=== PATIENT | male | born 1980 | race Two or more races ===

== ENCOUNTER 2017-07-14 01:59 | Emergency (ER) | payer MEDICAID ==
[~2017-07-14] VITALS: Ht 172.7 cm; Wt 79.4 kg
[2017-07-14 02:10] VITALS: BP 164/102
[2017-07-14] MEDS ORDERED: Morphine Sulfate 4mg/ml Inj IVP ONE (02:45)
[2017-07-14] MEDS ORDERED: Ketorolac 30mg Inj IV ONE (02:45)
[2017-07-14 03:45] LABS: APPEARANCE,URINE CLEAR; KETONES,URINE NEGATIVE (NEGATIVE); LEUKOCYTE ESTERASE ,URINE 1+ (NEGATIVE); NITRITE,URINE NEGATIVE (NEGATIVE); PH,URINE 5 (4.5-8.0); PROTEIN,URINE 1+ (NEGATIVE); UROBILINOGEN,URINE 4 MG/DL (0.0-1.0)
[2017-07-14 03:48] LABS: BASOPHILS % (AUTO) 1.3 % (0.0-2.0); EOSINOPHILS % (AUTO) 1.7 % (0.0-3.0); LYMPHOCYTES % (AUTO) 38.1 % (20.0-45.0); MEAN CORPUSCULAR HEMOGLOBIN 31.3 PG (27.0-31.0); MEAN CORPUSCULAR HGB CONC 35.6 G/DL (32.0-36.0); MEAN CORPUSCULAR VOLUME 88 FL (80-99); MEAN PLATELET VOLUME 6.9 FL (6.5-10.1); MONOCYTES % (AUTO) 10.6 % (1.0-10.0); NEUTROPHILS % (AUTO) 48.3 % (45.0-75.0); PLATELET COUNT 271 K/UL (150-450); RED BLOOD COUNT 4.29 M/UL (4.70-6.10); WHITE BLOOD COUNT 7.8 K/UL (4.8-10.8)
[2017-07-14 04:01] LABS: ALANINE AMINOTRANSFERASE 34 U/L (3-41); ALBUMIN/GLOBULIN RATIO 1.3 (1.0-2.7); ANION GAP 14 (5-15); ASPARTATE AMINO TRANSFERASE 21 U/L (5-40); CALCIUM 9.7 mg/dL (8.6-10.2); CARBON DIOXIDE 28 mEQ/L (20-30); CHLORIDE 100 mEQ/L (98-107); GLOMERULAR FILTRATION RATE > 60 mL/min (>60); HEMOLYSIS 17; LIPASE 18 U/L (< 60); POTASSIUM 3.2 mEQ/L (3.4-4.9); SODIUM 142 mEQ/L (135-145); TOTAL PROTEIN 7.6 g/dL (6.6-8.7)
[2017-07-14 04:05] LABS: CALCIUM OXALATE CRYSTALS,UR FEW /LPF; ICTOTEST NEGATIVE; WBC,URINE 0-2 /HPF (0 - 0)
[2017-07-14 04:10] VITALS: BP 128/89
[2017-07-14] MEDS ORDERED: TAMSULOSIN HCL0.4 MG ORAL (05:07)
[2017-07-14] MEDS ORDERED: IBUPROFEN600 MG ORAL (05:07)
--- NOTE | 2017-07-14 05:47 | Emergency Room Report ---
History of Present Illness General Chief Complaint: Lower Back Pain or Injury Source: Patient Present Illness HPI [id number] with acute onset right lower back pain Intermittent spasm pain since few hours Difficulty urinatign d/t pain Previous right sided renal stone Denies nausea/vomiting, abd pain, fever/chills Denies other medical problems Allergies: Coded Allergies: No Known Allergies (Unverified , 07/14/17) Patient History Past Medical History: other - Renal stone Past Surgical History: none Pertinent Family History: none Social History: Denies: smoking, alcohol use, drug use Immunizations: UTD Reviewed Nursing Documentation: PMH: Agreed, PSxH: Agreed Review of Systems All Other Systems: negative except mentioned in HPI Physical Exam Vital Signs Date Time Temp Pulse Resp B/P (MAP) Pulse Ox O2 Delivery O2 Flow Rate FiO2 07/14/17 02:04 97.9 105 22 164/102 98 Room Air Sp02 EP Interpretation: reviewed, normal General Appearance: normal inspection, well appearing, no apparent distress, alert, GCS 15, non-toxic Head: normocephalic, atraumatic Eyes: bilateral eye PERRL, bilateral eye EOMI ENT: normal ENT inspection, hearing grossly normal, normal voice Neck: normal inspection, full range of motion, supple, no bony tend Respiratory: normal inspection, lungs clear, normal breath sounds, no respiratory distress, no retraction, no wheezing Cardiovascular #1: regular rate, rhythm, no edema Gastrointestinal: normal inspection, normal bowel sounds, non tender, soft, no guarding, no hernia Genitourinary: CVA tenderness (R) Musculoskeletal: normal inspection, back normal, normal range of motion, Mrii' s Sign negative Neurologic: normal inspection, alert, oriented x3, responsive, client support associate III-XII nml as tested, motor strength/tone normal, speech normal Psychiatric: normal inspection, judgement/insight normal, mood/affect normal Skin: normal inspection, normal color, no rash Medical Decision Making Diagnostic Impression: Primary Impression: Renal stone ER Course CT with right 2mm stone, already in bladder. Mild stranding, hydro Likely passed or will pass stone given already in bladder, small size VSS. Afebrile. UA without infection. No leuks or RERE Much improved after IV toradol/morphine, fluid Patient slept throughout night in ED Rx Flomax, Motrin PMD followup as needed DC home Last Vital Signs Date Time Temp Pulse Resp B/P (MAP) Pulse Ox O2 Delivery O2 Flow Rate FiO2 07/14/17 02:10 97.9 102 22 164/102 98 Room Air Status: improved Disposition: HOME, SELF-CARE Condition: Improved Scripts Ibuprofen* (MOTRIN*) 600 Mg Tablet 600 MG ORAL THREE TIMES A DAY for 7 Days, #30 TAB 0 Refills Prov: SUREKHA TRINIDAD M.D. 07/14/17 Tamsulosin Hcl (TAMSULOSIN HCL*) 0.4 Mg Cap.er.24h 0.4 MG ORAL Morning for 7 Days, #7 CAP Prov: SUREKHA TRINIDAD M.D. 07/14/17 Patient Instructions: Kidney Stones Additional Instructions: - Take Flomax daily in morning for 7 days - Take motrin as needed for severe pain - Follow up with primary care doctor for Urology referral as needed SUREKHA TRINIDAD M.D. Jul 14, 2017 05:46
[2017-07-14 06:05] VITALS: BP 133/87
--- NOTE | 2017-07-14 12:35 | Diagnostic Imaging Report ---
Indication: Right-sided back pain. History of kidney stones Technique: Spiral acquisitions obtained through the abdomen and pelvis. No oral contrast utilized, per emergency room physician request No IV contrast utilized, per referring physician request.. Multiplanar reconstructions were generated. Total dose length product 833 mGycm. CTDIvol(s) 15 mGy. Dose reduction achieved using automated exposure control Comparison: None Findings: There is a 2 mm calcification either within the bladder lumen or at the distal left ureteral orifice. There is mild ectasia of the left ureter and left renal collecting system. There is minimal perinephric fat stranding. No left ureteral calculi, hydronephrosis, hydroureter. No intrarenal calculi demonstrated on either side. Lack of IV contrast limits assessment of the renal parenchyma. No gross renal parenchymal mass or cyst demonstrated. Lack of IV contrast limits assessment of the other solid organs. The liver is diffusely mildly hypoattenuating, consistent with fatty change. No focal abnormalities. The gallbladder is surgically absent. No biliary ductal dilatation. The spleen is borderline enlarged, measuring 14.2 cm long axis dimension The pancreas and adrenals are unremarkable. No retroperitoneal or mesenteric mass or adenopathy. No pelvic mass or adenopathy. Lack of enteric contrast limits assessment of the GI tract. There is no evidence of diverticulosis or diverticulitis. Normal appendix. No small bowel distention. The stomach is filled with food. The distal esophagus is unremarkable. The included lung bases are clear. The bones are unremarkable. Impression: Positive for 2 mm calculus either at the right ureteral orifice or within the bladder lumen. Minimal right hydroureter and hydronephrosis and perinephric fat stranding Mild splenomegaly Fatty liver Evidence of prior cholecystectomy This agrees with the preliminary interpretation provided overnight by [facility] teleradiology service. The CT scanner at [facility] is accredited by the [employer] and the scans are performed using protocols designed to limit radiation exposure to as low as reasonably achievable to attain images of sufficient resolution adequate for diagnostic evaluation.
== END 2017-07-14 06:05 | disposition home or self-care (01) ==
LOC: EMR 02:40
DX: N13.2 Hydronephrosis with renal and ureteral calculous obstruction (principal); K76.0 Fatty (change of) liver, not elsewhere classified; Z90.49 Acquired absence of other specified parts of digestive tract
CPT/HCPCS: 36415; 74176; 80053; 80300; 81003; 83690; 85025; 96361; 96374; 96375; 99284; J1885; J2270; J2405

== ENCOUNTER 2018-09-19 08:05 | Inpatient (IN) | payer SELFPAY ==
[~2018-09-19] VITALS: Ht 172.7 cm; Wt 84.8 kg
[2018-09-19] VITALS (7 sets, daily range): BP systolic 124–150; BP diastolic 86–102
[~2018-09-19 08:05] MED LIST: IBUPROFEN600 MG ORAL; TAMSULOSIN HCL0.4 MG ORAL
[2018-09-19] MEDS ORDERED: NKM (08:12)
--- NOTE | 2018-09-19 08:38 | Emergency Room Report ---
History of Present Illness General Chief Complaint: Upper Extremity Injury Source: Patient Present Illness HPI 38-year-old healthy male with no medical problems, denies tobacco alcohol or drug use as well, presents with 1 week history of left chest and shoulder pain, reports his arm feels weak as well on the left, and reports he was last known normal about 1 week ago. He reports he symptoms gradually started and he only came in today consisted is not getting better. He denies slurred speech, facial droop, leg or right-sided weakness, blurred vision, nausea, vomiting. He reports when tries to use his left arm feels weaker than the right arm and it hurts in her shoulder. He denies any injuries, he does report a mild occipital headache as well. Allergies: Coded Allergies: No Known Allergies (Unverified , 07/14/17) Patient History Past Medical History: see triage record Reviewed Nursing Documentation: PMH: Agreed; PSxH: Agreed Nursing Documentation-PMH Past Medical History: No Stated History Review of Systems All Other Systems: negative except mentioned in HPI Physical Exam Vital Signs Date Time Temp Pulse Resp B/P (MAP) Pulse Ox O2 Delivery O2 Flow Rate FiO2 09/19/18 08:10 98.4 96 18 161/99 99 Room Air Sp02 EP Interpretation: reviewed, normal General Appearance: no apparent distress, alert, non-toxic Head: normocephalic Eyes: bilateral eye normal inspection, bilateral eye PERRL, bilateral eye EOMI ENT: normal ENT inspection, hearing grossly normal, normal pharynx, no angioedema, normal voice, moist mucus membranes Neck: normal inspection, full range of motion - L shoulder with limitation to active ROM but FROM to passive ROM testing, supple, supple/symm/no masses Respiratory: chest non-tender, lungs clear, normal breath sounds, no rhonchi, no respiratory distress, no retraction, no accessory muscle use, no wheezing, chest symmetrical, palpation of chest normal Cardiovascular #1: normal peripheral pulses, regular rate, rhythm, no edema, no gallop, no JVD, no murmur, no rub Cardiovascular #2: 2+ radial (R), 2+ radial (L) Gastrointestinal: normal inspection, non tender, soft, no mass, no guarding, no rebound Rectal: deferred Genitourinary: normal inspection, no CVA tenderness Musculoskeletal: back normal, gait/station normal, normal range of motion, non- tender, no calf tenderness, Miri's Sign negative Neurologic: alert, responsive, pediatric dermatologist III-XII nml as tested, motor strength/tone normal - Patient with difficulty raising the left arm above 90, but symmetric night warehouse selector strength bilateral hands, sensory intact, cerebellar normal, normal gait, speech normal Psychiatric: judgement/insight normal, memory normal, anxious Skin: normal color, no rash, warm/dry, normal turgor Lymphatic: no adenopathy Medical Decision Making Diagnostic Impression: Primary Impression: Shoulder pain, left ER Course Patient appears very anxious, tearful, and does have some mild left arm weakness , it's difficult to ascertain if this is secondary to pain in her shoulder, but patient reports it's been weak for an entire week now. He has no risk factors for stroke or coronary disease. Do not suspect PE or aortic dissection. Given him an aspirin as well as Ativan. Pt's workup has been unremarkable including head CT labs, EKG, chest x-ray, upon reevaluation patient is less anxious but still unable to left arm, he reports he is not having neck pain and had not had any trauma, but is still unable to lift his arm fully and reports it is not secondary to shoulder pain. I doubt patient had a stroke, and if he did he is out of the TPA and neuro interventional window since symptoms for a full week [employer]WORK [employer], he had stroke scale of 1 if this is a cva, I doubt spinal cord compression given no neck pain or trauma. Will admit since patient still weak and it is not pain limited. He was given asa 325. EKG Diagnostic Results EKG Time: 08:39 EP Interpretation: no st-t changes, or twi's Rate: normal Rhythm: NSR ST Segments: no acute changes ASA given to the pt in ED: Yes Rhythm Strip Diag. Results Rhythm Strip Time: 08:51 EP Interpretation: yes Rate: 89 Rhythm: NSR, no PVC's, no ectopy Chest X-Ray Diagnostic Results Chest X-Ray Diagnostic Results : Chest X-Ray Ordered: Yes # of Views/Limited/Complete: 1 View Indication: Chest Pain EP Interpretation: Yes Interpretation: no consolidation, no effusion, no pneumothorax, no acute cardiopulmonary disease Impression: No acute disease Electronically Signed by: Noah Grant MD CT/MRI/US Diagnostic Results CT/MRI/US Diagnostic Results : Imaging Test Ordered: ct head Impression no acute dz Last Vital Signs Date Time Temp Pulse Resp B/P (MAP) Pulse Ox O2 Delivery O2 Flow Rate FiO2 09/19/18 08:10 98.4 96 18 161/99 99 Room Air Disposition: ADMITTED INPATIENT NOAH GRANT M.D Sep 19, 2018 08:38
[2018-09-19] MEDS ORDERED: LORazepam 1mg tab ORAL ONE (08:45)
[2018-09-19 08:59] LABS: BASOPHILS % (AUTO) 1.1 % (0.0-2.0); EOSINOPHILS % (AUTO) 1.7 % (0.0-3.0); HEMATOCRIT 42.4 % (42.0-52.0); HEMOGLOBIN 14.7 G/DL (14.2-18.0); LYMPHOCYTES % (AUTO) 29.8 % (20.0-45.0); MEAN CORPUSCULAR VOLUME 82 FL (80-99); MONOCYTES % (AUTO) 9.7 % (1.0-10.0); NEUTROPHILS % (AUTO) 57.6 % (45.0-75.0); PLATELET COUNT 315 K/UL (150-450); RED BLOOD COUNT 5.17 M/UL (4.70-6.10); RED CELL DISTRIBUTION WIDTH 11.1 % (11.6-14.8); WHITE BLOOD COUNT 7.7 K/UL (4.8-10.8)
[2018-09-19 09:08] LABS: ANION GAP 7 mmol/L (5-15); BLOOD UREA NITROGEN 10 mg/dL (7-18); CALCIUM 8.8 MG/DL (8.5-10.1); CARBON DIOXIDE 27 MMOL/L (21-32); CHLORIDE 103 MMOL/L (98-107); CREATININE 0.8 MG/DL (0.55-1.30); POTASSIUM 3.3 MMOL/L (3.5-5.1); SODIUM 137 MMOL/L (136-145)
[2018-09-19 09:15] LABS: ALANINE AMINOTRANSFERASE 49 U/L (12-78); ALBUMIN 3.8 G/DL (3.4-5.0); ALBUMIN/GLOBULIN RATIO 0.8 (1.0-2.7); ALKALINE PHOSPHATASE 98 U/L (46-116); ASPARTATE AMINO TRANSFERASE 25 U/L (15-37); BILIRUBIN,TOTAL 0.6 MG/DL (0.2-1.0)
--- NOTE | 2018-09-19 09:48 | Diagnostic Imaging Report ---
Indication: Left-sided weakness Technique: Contiguous 5 mm thick transaxial imaging of the head obtained in a Siemens Sensation [address] scanner. Soft tissue and bone windows generated. Automatic Exposure Control was utilized. Total Dose length Product (DLP): 1407.[address] Dose Index Volume (CTDIvol): 70.38 mGy Comparison: none Findings: The size and configuration of the cortical sulci, basal cisterns, and ventricles are within normal limits for age. There is no mass effect, midline shift, or edema identified. There is no evidence of acute hemorrhage or abnormal intra-axial or extra-axial fluid collections. The bones and soft tissues are unremarkable. Impression: No mass effect, edema or acute bleed. The CT scanner at [facility] is accredited by the [employer] and the scans are performed using dose optimization techniques as appropriate to a performed exam including Automatic Exposure control.
--- NOTE | 2018-09-19 13:49 | Diagnostic Imaging Report ---
Indication: Chest pain Comparison: None A single view chest radiograph was obtained. Findings: Cardiomediastinal appearance is within normal limits for age. The lungs are clear. Pulmonary vascularity is appropriate. The diaphragmatic contour is smooth and costophrenic angles are sharp. No pleural effusions are identified. The bones are unremarkable. Impression: No acute findings
--- NOTE | 2018-09-19 15:29 | Diagnostic Imaging Report ---
Indication: New onset left arm weakness Technique: The head was imaged in a 1.5 Hannah magnet. Sequences obtained include sagittal and axial T1 FLAIR, axial T2 fast spin echo with fat saturation, axial T2 FLAIR, diffusion and ADC map. Comparison: None Findings: The size, contour, and configuration of the sulci, ventricles, and basal cisterns appear normal. Swift-white differentiation is normal. There is no restricted diffusion. There is no mass effect, midline shift, edema, or hemorrhage. There are no abnormal extra-axial or intra-axial fluid collections. The corpus callosum is unremarkable. The brainstem and cerebellum are unremarkable. The sella is unremarkable. Bone marrow signal within the visualized osseous structures appears age appropriate and unremarkable otherwise. There is a abnormal signal opacifying the right maxillary sinus. Impression: Negative MRI brain without contrast. Right maxillary sinusitis
--- NOTE | 2018-09-19 15:31 | Diagnostic Imaging Report ---
Indication: New onset left arm weakness Technique: MRI examination of the cervical spine was performed in a 1.5 Hannah magnet. Sequences obtained include sagittal and axial T1 and T2 fast spin echo, and sagittal STIR. Comparison: none Findings: Bone marrow signal and alignment are normal. The height and configuration of the vertebral bodies and intervertebral discs are normal. There is no evidence of stenosis of the central canal or neural foramen. There is no evidence of cord compression. The visualized part of the spinal cord appears normal in signal. There is no Chiari malformation. No abnormal fluid collections are demonstrated. The paraspinous and paravertebral soft tissues are unremarkable. IMPRESSION: Normal MRI of the cervical spine
[2018-09-19] MEDS ORDERED: Aspirin Baby 81mg ORAL SCH (15:59)
[2018-09-19] MEDS: NS w/KCl 20mEq 1,000 ML IV SCH (17:00)
--- NOTE | 2018-09-19 19:53 | Diagnostic Imaging Report ---
EXAM: MR Left Upper Extremity Without Intravenous Contrast, Shoulder CLINICAL HISTORY: PAIN TECHNIQUE: Multiplanar magnetic resonance images of the left shoulder without intravenous contrast. COMPARISON: No relevant prior studies available. FINDINGS: Limitations: Limited due to incomplete/inadequate MRI images. TENDONS: Supraspinatus: Unremarkable. Infraspinatus: Unremarkable. Subscapularis: Unremarkable. Teres minor: Unremarkable. Biceps brachii, long head: Unremarkable. LIGAMENTS: Glenohumeral: Unremarkable. Muscles: Unremarkable. Cartilage: Unremarkable. Glenoid labrum: Unremarkable. No tear. Bones/joints: Mild edema in the distal clavicle which may be artifactual, chronic, versus stress fracture. Soft tissues: Mild edema/fluid near acromioclavicular joint, which may be joint effusion/synovitis, soft tissue injury, or ligamentous sprain. IMPRESSION: 1. Limited due to incomplete/inadequate MRI images. 2. Mild edema in the distal clavicle which may be artifactual, chronic, versus stress fracture. 3. Mild edema/fluid near acromioclavicular joint, which may be joint effusion/synovitis, soft tissue injury, or ligamentous sprain.
[2018-09-19] MEDS ORDERED: Tamsulosin 0.4mg cap ORAL SCH (21:00)
--- NOTE | 2018-09-19 23:46 | History and Physical Report ---
DATE OF ADMISSION: 09/19/2018 REASON FOR ADMISSION: Left upper extremity pain. HISTORY OF PRESENT ILLNESS: This is a 38-year-old male, who presented to the hospital with about a week long history of left shoulder and chest discomfort. He denies any known trauma or fall. He denies any other neurologic deficits. He was admitted to the hospital for evaluation. Vitals afebrile, blood pressure 161/99, pulse 96, and respiratory rate 18 in the emergency room. PAST MEDICAL HISTORY: Unremarkable. FAMILY HISTORY: Noncontributory. SOCIAL HISTORY: Negative for smoking or alcohol use. MEDICATIONS: Prior to admission, reviewed and reconciled. PHYSICAL EXAMINATION: VITAL SIGNS: Blood pressure 144/92, pulse 87, and respirations 12. HEENT: Conjunctivae pink. Oropharynx clear. NECK: Supple. Jugular venous pressure normal. LUNGS: Clear. CARDIAC: Regular rhythm and rate. Normal S1 and S2 with no murmur. ABDOMEN: Soft and nontender. EXTREMITIES: No edema. Decreased range of motion. Left upper extremity with difficulty lifting the arm completely above head. There is no focal effusion or point tenderness. IMAGING STUDIES: EKG reveals sinus rhythm with no acute abnormalities. LABORATORY DATA: Notable for potassium 3.3. White count 7.7 and hemoglobin 14.7. IMAGING STUDIES: Include head CT and brain MRI both negative. Cervical spine MRI unremarkable. Chest x-ray with no acute process. MRI of the left shoulder revealed incomplete imaging. Mild edema of the distal clavicle possibly due to stress fracture. Mild edema near the acromioclavicular joint, which may be effusion and synovitis versus soft tissue injury as ligament sprain. IMPRESSION: Left shoulder abnormality as described above with decrease range of motion and weakness of the left upper extremity. PLAN: Arm sling and nonsteroidal anti-inflammatory drugs. Possible outpatient orthopedic followup if no significant pain. Tylor Scruggs M.D. DR: MICHELET JOB#: [id number] CC:
[2018-09-20] VITALS: BP 127/78
[2018-09-20] MEDS: NS w/KCl 20mEq 1,000 ML IV SCH ×2 (01:31→10:15)
[2018-09-20 04:00] VITALS: BP 130/70
[2018-09-20 08:00] VITALS: BP 139/96
[2018-09-20] MEDS ORDERED: Aspirin Baby 81mg ORAL SCH (09:00)
[2018-09-20 09:30] LABS: ALANINE AMINOTRANSFERASE 52 U/L (12-78); ALBUMIN 3.6 G/DL (3.4-5.0); ALBUMIN/GLOBULIN RATIO 0.8 (1.0-2.7); ALKALINE PHOSPHATASE 98 U/L (46-116); ANION GAP 12 mmol/L (5-15); ASPARTATE AMINO TRANSFERASE 28 U/L (15-37); BILIRUBIN,TOTAL 0.6 MG/DL (0.2-1.0); BLOOD UREA NITROGEN 11 mg/dL (7-18); CALCIUM 8.8 MG/DL (8.5-10.1); CARBON DIOXIDE 23 MMOL/L (21-32); CHLORIDE 104 MMOL/L (98-107); CREATININE 0.8 MG/DL (0.55-1.30); SODIUM 139 MMOL/L (136-145)
[2018-09-20 12:00] VITALS: BP 152/99
--- NOTE | 2018-09-21 12:58 | Discharge Summary ---
Discharge Summary Discharge Summary _ DATE OF ADMISSION: 09/19/2018 DATE OF DISCHARGE: 09/20/2018 REASON FOR ADMISSION: 38 years old male without significant past medical history, presented with one- week history of left chest and shoulder pain. He reported his left arm feeling weak. Reported symptoms started gradually and not improving. He denied slurred speech ,facial droop, left leg or or right-sided weakness, blurred vision, nausea ,vomiting. He denies any injury or trauma. Upon evaluation laboratory workup was unremarkable ,except potassium 3.3 ,which was replaced in emergency department. Troponin was negative. EKG revealed normal sinus rhythm, no cute ischemic changes. Chest x-ray revealed no acute cardio pulmonary pathology. CT of the head revealed no acute intracranial pathology. Cervical spine MRI was unremarkable. Brain MRI was unremarkable , except visualized right maxillary sinusitis. Left shoulder MRI revealed mild edema in the distal clavicle and mild edema near acromioclavicular joint ,possible joint effusion/synovitis, soft tissue injury or ligamentous sprain. Patient was admitted for further management with diagnoses of left shoulder pain. HOSPITAL COURSE: Patient admitted to telemetry floor. Patient started on antiplatelet therapy with aspirin. Serial troponin were negative. EKG revealed no acute ischemic changes. Patient was ruled out for acute AK. Pain management was addressed with NSAIDs, and was controlled. Arm sling applied. Patient was stable for discharge home on nonsteroid anti-inflammatory medication and with arm sling. P Patient was recommended to follow-up with orthopedic consultation, if pain not resolved . Patient was explained , that he could request all imaging done in the hospital for further management as outpatient Due to rapid and unexpected improvement in patient condition, patient was discharged in one day FINAL DIAGNOSES: Left shoulder abnormality- possible joint effusion/synovitis, soft tissue injury or ligamentous sprain ( per imaging) DISCHARGE MEDICATIONS: See Medication Reconciliation list. DISCHARGE INSTRUCTIONS: Patient was discharged home. Follow up with orthopedic evaluation as outpatient if pain not resolved I have been assigned to dictate discharge summary for this account. I was not involved in the patient's management. Sarai Small NP Sep 21, 2018 12:58
== END 2018-09-20 15:35 | disposition home or self-care (01) | DRG 556 ==
LOC: EMR 08:48 → 2E 11:15 → EDBEDREQ 13:29
DX: M25.812 Other specified joint disorders, left shoulder (principal); S43.492A Other sprain of left shoulder joint, initial encounter; X58.XXXA Exposure to other specified factors, initial encounter; S49.92XA Unspecified injury of left shoulder and upper arm, initial encounter
CPT/HCPCS: 36415; 70450; 70551; 71045; 72141; 80053; 80307; 83735; 84484; 84550; 85025; 96360; 99285

== ENCOUNTER 2020-10-27 11:37 | Emergency (ER) | payer MEDICAID ==
[~2020-10-27] VITALS: Ht 172.7 cm; Wt 90.7 kg
[~2020-10-27 11:37] MED LIST changes: +NKM
--- NOTE | 2020-10-27 12:00 | NUR ---
ED Nurse Note: pt walked in from home to er c/o 08/20 right flank pain due to kidney stones. a/ox4, ambulatory.
[2020-10-27 12:11] VITALS: BP 136/82
[2020-10-27] MEDS ORDERED: Morphine Sulfate 4mg/ml Inj (IV USE ONLY) IVP ONE (12:15)
[2020-10-27] MEDS ORDERED: Metoclopramide 10mg/2ml Inj IVP ONE (12:15)
[2020-10-27] MEDS ORDERED: Ketorolac 30mg Inj IV ONE (12:15)
[2020-10-27] MEDS ORDERED: DiphenhydrAMINE 50mg/ml Inj IVP ONE (12:15)
--- NOTE | 2020-10-27 12:43 | NUR ---
ED Nurse Note: patient off floor for ct scan.
--- NOTE | 2020-10-27 12:54 | NUR ---
ED Nurse Note: patient back on floor for ct scan.
[2020-10-27 12:55] LABS: BASOPHILS % (AUTO) 1.9 % (0.0-2.0); EOSINOPHILS % (AUTO) 1.1 % (0.0-3.0); HEMOGLOBIN 16.2 G/DL (14.2-18.0); LYMPHOCYTES % (AUTO) 24.3 % (20.0-45.0); MEAN CORPUSCULAR VOLUME 84 FL (80-99); MONOCYTES % (AUTO) 7.1 % (1.0-10.0); NEUTROPHILS % (AUTO) 65.6 % (45.0-75.0); PLATELET COUNT 270 K/UL (150-450); RED BLOOD COUNT 5.62 M/UL (4.70-6.10); RED CELL DISTRIBUTION WIDTH 12.6 % (11.6-14.8); WHITE BLOOD COUNT 10.5 K/UL (4.8-10.8)
[2020-10-27 12:58] LABS: APPEARANCE,URINE SLIGHTLY CLOUDY; BILIRUBIN, URINE NEGATIVE (NEGATIVE); GLUCOSE, URINE (UA) 2+ (NEGATIVE); KETONES,URINE 1+ (NEGATIVE); LEUKOCYTE ESTERASE ,URINE 1+ (NEGATIVE); NITRITE,URINE NEGATIVE (NEGATIVE); PH,URINE 5 (4.5-8.0); PROTEIN,URINE 2+ (NEGATIVE); UROBILINOGEN,URINE 4 MG/DL (0.0-1.0)
[2020-10-27 13:01] LABS: COLOR,URINE YELLOW
[2020-10-27 13:06] LABS: ANION GAP 8 mmol/L (5-15); BLOOD UREA NITROGEN 10 mg/dL (7-18); CALCIUM 8.8 MG/DL (8.5-10.1); CARBON DIOXIDE 29 MMOL/L (21-32); CHLORIDE 97 MMOL/L (98-107); CREATININE 0.9 MG/DL (0.55-1.30); POTASSIUM 3.3 MMOL/L (3.5-5.1); SODIUM 134 MMOL/L (136-145)
[2020-10-27 13:18] LABS: ALANINE AMINOTRANSFERASE 267 U/L (12-78); ALBUMIN 3.9 G/DL (3.4-5.0); ALBUMIN/GLOBULIN RATIO 0.8 (1.0-2.7); ALKALINE PHOSPHATASE 155 U/L (46-116); ASPARTATE AMINO TRANSFERASE 202 U/L (15-37); BILIRUBIN,TOTAL 1.1 MG/DL (0.2-1.0)
[2020-10-27 13:29] LABS: BILIRUBIN,DIRECT 0.2 MG/DL (0.0-0.3)
[2020-10-27 13:36] VITALS: BP 131/78
--- NOTE | 2020-10-27 13:57 | Emergency Room Report ---
History of Present Illness General Chief Complaint: General Complaint Source: Patient Present Illness HPI The patient presents with severe right-sided flank pain. This began suddenly this morning. He feels it in his right flank and radiating toward his groin. The pain is 10/10 at this time. He also had nausea without any vomiting. There is been no diarrhea. He denies any fevers or chills. He had this once before and was diagnosed with a kidney stone. He denies any hematuria or dysuria. The patient denies being exposed to Covid positive contacts. No fevers, chills, sore throat, chest pain, palpitations, shortness of breath, joint pain, rashes, depression, anxiety, visual changes, dizziness, headache. 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 Nursing Documentation: PMH: Agreed; PSxH: Agreed Nursing Documentation-PMH Hx Cardiac Problems: No Hx Cancer: No Hx Gastrointestinal Problems: No Hx Neurological Problems: No Review of Systems All Other Systems: negative except mentioned in HPI Physical Exam Vital Signs Date Time Temp Pulse Resp B/P (MAP) Pulse Ox O2 Delivery O2 Flow Rate FiO2 10/27/20 11:54 98.8 85 18 136/82 (100) 100 Room Air Sp02 EP Interpretation: reviewed, normal General Appearance: GCS 15, non-toxic, mild distress Head: normocephalic Eyes: bilateral eye normal inspection, bilateral eye PERRL, bilateral eye EOMI ENT: other - Wearing a mask Neck: supple Respiratory: lungs clear, normal breath sounds Cardiovascular #1: regular rate, rhythm Cardiovascular #2: 2+ radial (R) Gastrointestinal: normal inspection, normal bowel sounds, non tender, no mass, non-distended Genitourinary: no CVA tenderness, other - Genitals normal Musculoskeletal: back normal, normal range of motion, gait/station normal Neurologic: alert, oriented x3, grossly normal Psychiatric: mood/affect normal - Although in pain Skin: no rash, warm/dry Medical Decision Making Diagnostic Impression: Primary Impression: Ureterolithiasis Additional Impression: Suspected COVID-19 virus infection ER Course Patient presents with right-sided flank pain with history of kidney stones. Differential includes pyelonephritis, ureteral lithiasis, UTI, diverticulitis amongst others. Evaluation with CT abdomen, labs. Patient treated with IV hydration and analgesia. CT reveals 2 mm stone UVJ on the right-hand side. Labs unremarkable except for microscopic hematuria. In addition there is slight elevated liver function test. Of note the CT also reported groundglass infiltrates in the lungs. After CT scan patient pain-free. Discussed findings with patient including the most likely diagnosis of Covid infection. Because of this the patient was advised to quarantine and self isolate. There is no indication for admission based on this. The patient was advised to collect a stone and take it to his private doctor. This patient was evaluated in the context of the global COVID-19 pandemic, which necessitated consideration that the patient might be at risk for infection with the [id number] virus that causes COVID-19. Institutional protocols and algorithms that pertain to the evaluation of patients at risk for COVID-19 and the state of rapid change based on information released by multiple regulatory bodies including the CDC and federal and state organizations. These policies and algorithms were followed during the patient's care in the ED. Patient stable for outpatient observation and treatment. Laboratory Tests Test 10/27/20 11:59 White Blood Count 10.5 K/UL (4.8-10.8) Red Blood Count 5.62 M/UL (4.70-6.10) Hemoglobin 16.2 G/DL (14.2-18.0) Hematocrit 47.0 % (42.0-52.0) Mean Corpuscular Volume 84 FL (80-99) Mean Corpuscular Hemoglobin 28.9 PG (27.0-31.0) Mean Corpuscular Hemoglobin Concent 34.5 G/DL (32.0-36.0) Red Cell Distribution Width 12.6 % (11.6-14.8) Platelet Count 270 K/UL (150-450) Mean Platelet Volume 7.9 FL (6.5-10.1) Neutrophils (%) (Auto) 65.6 % (45.0-75.0) Lymphocytes (%) (Auto) 24.3 % (20.0-45.0) Monocytes (%) (Auto) 7.1 % (1.0-10.0) Eosinophils (%) (Auto) 1.1 % (0.0-3.0) Basophils (%) (Auto) 1.9 % (0.0-2.0) Prothrombin Time 11.4 SEC (9.30-11.50) Prothrombin Time INR 1.0 (0.9-1.1) Activated Partial Thromboplast Time 25 SEC (23-33) Urine Color Yellow Urine Appearance Slightly cloudy Urine pH 5 (4.5-8.0) Urine Specific [place] 1.025 (1.005-1.035) Urine Protein 2+ (NEGATIVE) H Urine Glucose (UA) 2+ (NEGATIVE) H Urine Ketones 1+ (NEGATIVE) H Urine Blood 5+ (NEGATIVE) H Urine Nitrite Negative (NEGATIVE) Urine Bilirubin Negative (NEGATIVE) Urine Urobilinogen 4 MG/DL (0.0-1.0) H Urine Leukocyte Esterase 1+ (NEGATIVE) H Urine RBC 15-20 /HPF (0 - 0) H Urine WBC 2-4 /HPF (0 - 0) Urine Squamous Epithelial Cells Few /LPF (NONE/OCC) Urine Amorphous Sediment Moderate /LPF (NONE) H Urine Bacteria Moderate /HPF (NONE) H Sodium Level 134 MMOL/L (136-145) L Potassium Level 3.3 MMOL/L (3.5-5.1) L Chloride Level 97 MMOL/L (98-107) L Carbon Dioxide Level 29 MMOL/L (21-32) Anion Gap 8 mmol/L (5-15) Blood Urea Nitrogen 10 mg/dL (7-18) Creatinine 0.9 MG/DL (0.55-1.30) Estimated Glomerular Filtration Rate > 60 mL/min (>60) Glucose Level 211 MG/DL (74-106) H Calcium Level 8.8 MG/DL (8.5-10.1) Total Bilirubin 1.1 MG/DL (0.2-1.0) H Direct Bilirubin 0.2 MG/DL (0.0-0.3) Aspartate Amino Transferase (AST) 202 U/L (15-37) H Alanine Aminotransferase (ALT) 267 U/L (12-78) H Alkaline Phosphatase 155 U/L (46-116) H Total Protein 9.0 G/DL (6.4-8.2) H Albumin 3.9 G/DL (3.4-5.0) Globulin 5.1 g/dL Albumin/Globulin Ratio 0.8 (1.0-2.7) L Lipase 125 U/L (73-393) CT/MRI/US Diagnostic Results CT/MRI/US Diagnostic Results : Imaging Test Ordered: Abdomen and pelvis Impression Impression: 2 mm distal right ureteral calculus, resulting in mild h ydronephrosis and hydroureter Peripheral bilateral lung base opacities, can indicate multifocal infiltrates or less likely focal patchy areas of pulmonary edema or chronic clinical findings. Splenomegaly Enlarged fatty liver Last Vital Signs Date Time Temp Pulse Resp B/P (MAP) Pulse Ox O2 Delivery O2 Flow Rate FiO2 10/27/20 14:14 98.8 18 131/78 100 Room Air 10/27/20 12:11 85 Status: improved Disposition: HOME, SELF-CARE Condition: Improved Referrals: NOT CHOSEN IPA/,REFERRING (PCP) Tylor Coffman MD Oct 27, 2020 13:57
--- NOTE | 2020-10-27 14:10 | Diagnostic Imaging Report ---
Indication: Abdominal pain , right flank pain Technique: Spiral acquisitions obtained through the abdomen and pelvis. No oral or IV contrast per urinary stone protocol Multiplanar reconstructions were generated. Total dose length product 602 mGycm. CTDIvol(s) 10 mGy. Dose reduction achieved using automated exposure control Comparison: 07/14/2017 Findings: There is a 2 mm calcification projected at the level of the right ureteral orifice. There is mild right hydronephrosis and hydroureter. Note that a very similar finding was evident on the previous study. No intrarenal calculi. No left renal or ureteral calculi, hydronephrosis, or hydroureter. Lack of IV contrast limits assessment of the renal parenchyma. No gross renal parenchymal mass or cyst is demonstrated. Lack of IV contrast limits assessment of the other solid organs. The liver demonstrates diffuse hypoattenuation, consistent with fatty change. No focal abnormality. It is mildly enlarged. The gallbladder has been removed. No biliary ductal dilatation. Pancreas and adrenals are unremarkable. The spleen is mildly enlarged, measuring 15 cm long axis dimension. No pelvic mass or adenopathy. Numerous prominent lymph nodes are seen in the retroperitoneum and in the mesenteric root. Similar findings are also present previously. The appendix is normal. No evidence of diverticulosis or diverticulitis. Some small bowel loops are fluid-filled. No small bowel distention. Distal esophagus, stomach, duodenum are unremarkable. The lung bases demonstrate peripheral groundglass opacities. The heart is borderline enlarged. The bones are unremarkable. Impression: 2 mm distal right ureteral calculus, resulting in mild hydronephrosis and hydroureter Peripheral bilateral lung base opacities, can indicate multifocal infiltrates or less likely focal patchy areas of pulmonary edema or chronic clinical findings. Splenomegaly Enlarged fatty liver Findings discussed by phone with Dr. Coffman in the emergency room at the time of interpretation The CT scanner at [facility] is accredited by the [employer] and the scans are performed using protocols designed to limit radiation exposure to as low as reasonably achievable to attain images of sufficient resolution adequate for diagnostic evaluation.
--- NOTE | 2020-10-27 14:13 | NUR ---
ED Nurse Note: Pt cleared by health care Provider for discharge. DC instructions/prescription was given and explained to pt and verbalized understanding of teachings. All medical deviecs such as ID band and iv removed. Pt is AAO x4, ambulatory and left with all personal belongings. urine strainer given to patient at discharge.
[2020-10-27 14:14] VITALS: BP 131/78
== END 2020-10-27 14:15 | disposition home or self-care (01) ==
LOC: EMR 12:26
DX: N20.1 Calculus of ureter (principal); R11.0 Nausea; Z20.828 Contact with and (suspected) exposure to other viral communicable diseases; Z87.442 Personal history of urinary calculi
CPT/HCPCS: 36415; 74176; 80053; 81003; 82248; 83690; 85025; 85610; 85730; 87086; 96361; 96374; 96375; J1200; J1885; J2270; J2765; J7030; Z7502; 99284